=== PATIENT | male | born 2000 | race Caucasian/White ===

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

== ENCOUNTER 2020-09-06 09:21 | Emergency (ER) | payer OTHER ==
[~2020-09-06] VITALS: Ht 185.4 cm; Wt 68.0 kg
[~2020-09-06 09:21] MED LIST: LORCET 5-325 M1 EACH PO; ZOFRAN ODT4 MG PO
[2020-09-06 10:09] VITALS: BP 122/68
== END 2020-09-06 10:10 | disposition home or self-care (01) ==
LOC: M.ERS 09:21
DX: M54.2 Cervicalgia (principal); M79.18 Myalgia, other site; V49.49XA Driver injured in collision with other motor vehicles in traffic accident, initial encounter; Y93.89 Activity, other specified; Y92.89 Other specified places as the place of occurrence of the external cause; Y99.8 Other external cause status